=== PATIENT | male | born 1995 ===

== ENCOUNTER → 2020-06-14 | Outpatient (CLI) | payer OTHER | END | disposition home or self-care (01) | LOC: LAB SHORT 19:08 → PLD 19:08 | DX: Z48.02 Encounter for removal of sutures (principal); T81.31XA Disruption of external operation (surgical) wound, not elsewhere classified, initial encounter; L08.9 Local infection of the skin and subcutaneous tissue, unspecified; L01.01 Non-bullous impetigo; L72.0 Epidermal cyst; L90.5 Scar conditions and fibrosis of skin | CPT/HCPCS: 87070; 87077; 87147; 87186; 87205 ==